=== PATIENT | female | born 1940 | race Caucasian/White ===

== ENCOUNTER 2020-08-22 19:08 | Emergency (ER) | payer MEDICARE, OTHER ==
[~2020-08-22] VITALS: Ht 172.7 cm; Wt 59.0 kg
[~2020-08-22 19:08] MED LIST: ALPR0.5T7 PO; AMIO200T4 PO; APIX5TAB OR; CARI350T22 PO; CHL4PW PO; CHOL50007 PO; CYAN1TAB14 PO; DIPH2.5T16 PO; EZET10TA22 PO; FEXO-42 PO; FLUO20CA19 PO; GABA300C11 PO; HYDR-4833 PO; METO25TA93 PO; MULTCHW OR; OMEG300C7 OR; SIMV-13 PO; TIOTCAP INH; [UNRECOGNIZED DRUG - CODE] PO; [UNRECOGNIZED DRUG - CODE] PO; [UNRECOGNIZED DRUG - CODE] TD
[2020-08-22] MEDS ORDERED: SODIUM CHLORIDE 0.9% 1,000 ML IV ONE (21:30)
[2020-08-22] MEDS ORDERED: ONDANSETRON HCL 4 MG/2 ML VIAL IV ONE (21:30)
[2020-08-22] MEDS ORDERED: HYDROmorphone HCL 2 MG/ML VL IV ONE (21:30)
[2020-08-22 22:18] LABS: Basophils # (auto) 0 10 ^3/uL (0-0.2); Basophils % (auto) 0.9 % (0.0-2.0); Eosinophils # (auto) 0 10 ^3/uL (0-0.8); Eosinophils % (auto) 0.1 % (0.0-7.0); Hematocrit 42.8 % (36.0-46.0); Hemoglobin 14.3 g/dL (12.2-16.2); Lymphocytes % (auto) 17.8 % (10.0-50.0); Mean Corpuscular Hemoglobin 31.7 pg (28.0-32.0); Mean Corpuscular Hgb Conc. 33.4 g/dL (32.0-36.0); Monocytes # (auto) 0.7 10 ^3/uL (0-1.3); Monocytes % (auto) 12.9 % (0.0-12.0); Neutrophils # (auto) 3.8 10 ^3/uL (1.6-8.6); Neutrophils % (auto) 68.3 % (37.0-80.0); Platelet Count (auto) 186 10^3/uL (140-450); Red Blood Cells 4.51 10^6/uL (4.0-5.20); Red Cell Distribution Width 13.2 % (11.8-14.3); White Blood Cell 5.6 10^3/uL (4.4-10.8)
[2020-08-22 22:39] LABS: Albumin 3.6 g/dL (3.4-5.0); BUN/Creatinine Ratio 28.9; Calcium 9.1 mg/dL (8.5-10.1); Potassium 3.8 mmol/L (3.5-5.1)
[2020-08-22 22:44] LABS: Bilirubin, Total 0.6 mg/dL (0.2-1.0); Total Protein 7.7 g/dL (6.4-8.2)
[2020-08-22 22:59] LABS: INR 1.12 (0.9-1.15); Partial Thromboplastin Time 27.1 sec (23.0-31.2)
[2020-08-23 04:45] VITALS: BP 148/89
[2020-08-23] MEDS ORDERED: HYDROcodone-ACET 10/325MG TAB PO ONE (04:45)
== END 2020-08-23 04:58 | disposition home or self-care (01) ==
LOC: EDBD 19:08 → ER 19:10
DX: R10.9 Unspecified abdominal pain (principal); I10 Essential (primary) hypertension; J44.9 Chronic obstructive pulmonary disease, unspecified; E78.5 Hyperlipidemia, unspecified; Z90.710 Acquired absence of both cervix and uterus; Z79.899 Other long term (current) drug therapy
CPT/HCPCS: 36415; 74176; 80053; 82150; 83605; 83690; 83735; 84484; 85025; 85610; 85730; 93005